=== PATIENT | female | born 1960 | race Caucasian/White ===

== ENCOUNTER → 2017-09-25 | Outpatient (CLI) | payer OTHER ==
[~2017-09-25] MED LIST: ASPIRIN81 M1 PO; LOPRESSOR50 MG PO; PREDNISONE10 MG PO; SYNTHROID0.05 MG PO; ZITHROMAX Z-PA250 MG PO; ZOCOR20 MG PO; ZOFRAN4 MG PO; ZOLOFT100 MG PO
== END | disposition home or self-care (01) ==
LOC: US 09-18 12:30
DX: N83.01 Follicular cyst of right ovary (principal)

== ENCOUNTER → 2017-11-04 | Outpatient (CLI) | payer OTHER ==
[~2017-11-04] MED LIST changes: +CEPHALEXIN500 M1 PO
== END | disposition home or self-care (01) ==
LOC: RAD 14:20
DX: J01.01 Acute recurrent maxillary sinusitis (principal); R06.7 Sneezing; R51 Headache; R05 Cough

== ENCOUNTER 2017-11-05 14:27 | Emergency (ER) | payer OTHER ==
[~2017-11-05] VITALS: Ht 154.9 cm; Wt 81.6 kg
[~2017-11-05 14:27] MED LIST changes: -CEPHALEXIN500 M1 PO
[2017-11-05] MEDS ORDERED: CEPHALEXIN500 M1 PO (15:11)
== END 2017-11-05 16:23 | disposition home or self-care (01) ==
LOC: ED 14:27
DX: S61.032A Puncture wound without foreign body of left thumb without damage to nail, initial encounter (principal); F17.200 Nicotine dependence, unspecified, uncomplicated; Z90.710 Acquired absence of both cervix and uterus; Z98.890 Other specified postprocedural states; Z79.82 Long term (current) use of aspirin; Z79.899 Other long term (current) drug therapy; W27.8XXA Contact with other nonpowered hand tool, initial encounter; Y93.89 Activity, other specified; Y92.89 Other specified places as the place of occurrence of the external cause; Y99.9 Unspecified external cause status